=== PATIENT | male | born 1970 | race Two or more races ===

== ENCOUNTER 2022-10-07 14:11 | Emergency (ER) | payer SELFPAY ==
[~2022-10-07] VITALS: Ht 177.8 cm; Wt 77.3 kg
[2022-10-07 14:23] VITALS: BP 137/85
== END 2022-10-07 17:17 | disposition left against medical advice (07) ==
LOC: ER 14:13
DX: F10.939 Alcohol use, unspecified with withdrawal, unspecified (principal); Z53.21 Procedure and treatment not carried out due to patient leaving prior to being seen by health care provider; Y90.9 Presence of alcohol in blood, level not specified
CPT/HCPCS: 99281